=== PATIENT | female | born 1960 | race Caucasian/White ===

== ENCOUNTER 2023-10-05 06:07 | Inpatient (IN) | payer MEDICARE, OTHER, SELFPAY ==
[2023-09-30 11:02] VITALS: BMI 29.4
[2023-09-30 11:58] LABS: % Basophils 0.3 % (0-2); % Eosinophils 0.7 % (0-6); % Immature Granulocytes 0.1 % (0-0.5); % Lymphocytes 25.8 % (20.5-51.1); % Neutrophils 66.1 % (42.2-75.2); Absolute Eosinophils 0.1 10^3/uL (0-0.7); Absolute Lymphocytes 2.3 10^3/uL (1.2-3.4); Absolute Monocytes 0.6 10^3/uL (0.1-0.6); Absolute Neutrophils 5.9 10^3/uL (1.4-6.5); Hematocrit 39.9 % (37.0-47.0); Hemoglobin 14.6 g/dL (12.0-16.0); Mean Corp Hgb Conc. 36.6 g/dL (33.0-37.0); Mean Corpuscular Hgb 35.2 pg (27.0-31.0); Mean Corpuscular Volume 96.1 fL (81.0-99.0); Nucleated Red Blood Cells % 0 %; Platelet Count 223 10^3/uL (130-400); Red Blood Cell Count 4.15 10^6/uL (4.20-5.40); Red Cell Dist. Width 11.4 % (11.5-14.5)
[2023-09-30 12:09] LABS: INR 0.96; PT 12.8 Sec (11.4-14.6)
[2023-09-30 12:10] LABS: APTT 24.4 Sec (23.4-35.0)
[2023-09-30 12:14] LABS: Blood Urea Nitrogen 24 mg/dl (7-17); Calcium 9.5 mg/dl (8.4-10.2); Carbon Dioxide 27 mmol/L (22-30); Chloride 98 mmol/L (98-107); Estimated Creatinine Clearance 94 ml/min; Glucose 171 mg/dl (70-99); Potassium 3.9 mmol/L (3.5-5.1); Sodium 136 mmol/L (135-145); eGFR > 60.00
[2023-10-05] VITALS (23 sets, daily range): BP systolic 88–137; BP diastolic 48–69; BMI 28.7
[2023-10-05] MEDS: BACTROBAN NASAL 1 GRAM NASAL (07:01)
[2023-10-05] MEDS: PERIDEX 0.12% ORAL RINSE 15 ML PO (07:01)
[2023-10-05] MEDS: NSS 500 IV (07:02)
--- NOTE | 2023-10-05 07:03 | W.SUR.PREOP ---
Pre-Operative Surgical Note
-
I have examined this patient prior to the performance of the scheduled procedure.
The patient's condition is unchanged from the time of the current History and
Physical and the patient is able to undergo the scheduled procedure.
[2023-10-05 07:08] LABS: Glucose - Point of Care 154 mg/dl (70-99)
[2023-10-05] MEDS: VANCOCIN 200 IV (07:13)
--- NOTE | 2023-10-05 09:28 | W.SUR.POST ---
Surgical Immediate Post Op
Note
Pre Op Diagnosis: Asymptomatic left carotid stenosis
Post Op Diagnosis: Asymptomatic left carotid stenosis
Procedure Performed: Left carotid endarterectomy with bovine pericardium patch angioplasty, with EEG monitoring
Primary Surgeon: Shane Wyatt MD
Assist: NAFISA Mullen
Anesthesia: GETA
Estimated Blood Loss: 10 ml
Fluids: See anesthesia flowsheet
Drains/Shunts: N/A
Specimens/Cultures: Left carotid plaque
Doppler/Duplex/Angio (Y/N): Y, Doppler
Complications: None
Operative Findings: Upon waking from anesthesia, patient able to move bilateral upper extremities and lower extremities to command and spontaneously.
--- NOTE | 2023-10-05 09:30 | W.PV.INTER ---
VPI Note
Pre Admission Note
Functional Status: Full
Ambulation: Ambulate Independently
Pre Op Medications
Pre Op ASA: Yes
Pre Op Statin: No, for Medical Reason (allergic )
Pre Op FLORIAN Inhibitor/ARB: Yes
Pre Op P2y12 Antagonist: Clopidogrel
Pre Op Beta Blockers: Chronic > 30 Days
Pre Op Chronic Anticoagulant: None
Pre Op Cilostazol: No
Post Op Medications
Post Op ASA: Yes
Post Op Statin: No, for Medical Reason
Post Op FLORIAN Inhibitor/ARB: Yes
Post Op P2y12 Antagonist: Clopidogrel
Post Op Beta Blockers: Chronic > 30 Days
Post Op Chronic Anticoagulant: None
Post Op Cilostazol: No
Modified [place]
Pre Op: 0
Post Op: 0
--- NOTE | 2023-10-05 10:22 | OR.RPT ---
Operative Report
Operative Report
PROCEDURE DATE: 10/05/2023
Preoperative diagnosis: Asymptomatic severe string-like left carotid stenosis.
Postoperative diagnosis: Same
Procedure: Left carotid endarterectomy with bovine pericardial patch angioplasty and intraoperative EEG/SSEP monitoring.
Surgeon: Edmundo
Department Clerk: HEBERT Daley required for all portions of procedure including traction/countertraction, following of suture line, assistance with closure.
Complications: None
Anesthesia: General
Indications for procedure:
Severe string-like left carotid stenosis in the setting of severe soft plaque. Risk/benefits/alternatives of revascularization were all fully discussed. Patient understood all wish to proceed.
Description of procedure:
Patient was identified brought to the operating room placed on the table in supine position. After the adequate administration of anesthesia and perioperative antibiotics she was prepped and draped in the standard surgical fashion. A standard
preoperative timeout was undertaken and everybody was in agreement the plan. A standard longitudinal incision was made in the left neck that was carried through the skin subcutaneous tissue. Using the electrocautery dissection was carried through
the platysma muscle layer and then alongside the anterior medial border of the sternocleidomastoid muscle. Then using a combination of sharp dissection with the Metzenbaum scissors and electrocautery I dissected along the anterior medial border of
the internal jugular vein. The common facial vein branch was ligated between silk ties and then divided. Note the facial vein branch was high (cephalad) to the bifurcation, but crossed over the internal carotid artery and therefore I felt would be
in the way anyway. I then deepened my retraction. The common carotid artery was identified and carefully dissected away from the surrounding structures take great care to avoid any injury to the structures. A vessel loop was passed around it
which was double looped, but not yet tightened. Note the vagus nerve was located in its usual location posterior lateral to the common carotid artery, and was protected from harm's way. I then continued my dissection up the common carotid artery
to the bulb staying only on the anterior surface of the carotid artery. Then I carried the dissection up to the internal carotid artery and then to the distal internal carotid artery. I identified where it was soft and carefully circumferentially
dissected the internal carotid artery with minimal mobilization and passed a vessel loop around it. Note the hypoglossal nerve was preserved from harm's way. The patient was given an appropriate dose of heparin 7500 units. Next I dissected the
anterior surface of the external carotid artery and superior thyroid branches. These were then carefully circumferentially dissected with minimal mobilization and vessel loops passed around these which were double looped but not yet tightened.
After 3 minutes of heparin circulation time and confirmation of optimization of the blood pressure with my anesthesiology colleagues, I clamped the distal internal carotid artery where it was soft. There was no immediate EEG or SSEP changes. After
1 minute of test clamp time there was no changes noted. Therefore at this point, the vessel loops on the external carotid artery and superior thyroid branches were tightened and the common carotid artery was clamped where it was soft proximally.
An arteriotomy was made on the common carotid artery with an 11 blade and extended using a Martínez scissor. I extended the arteriotomy onto the mid to distal internal carotid artery. There was relatively focal proximal internal carotid artery plaque
with severe hemorrhagic component. Correlated exactly to findings seen on CT scan. A [place] was then used to endarterectomized the plaque. An endarterectomy plane was created, and the plaque was then endarterectomized. Distally I feathered the
plaque out to a nice clean endpoint in the distal internal carotid artery. Next I endarterectomized the intima back to normal intima in the common carotid artery, and the intima was cut flush there. I then grasped the plaque and everted plaque out
of the origin of the external carotid artery. The plaque was then sent off for specimen. The origin of the external carotid artery was carefully visualized and any fine debris were removed with fine forceps. Proximal and distal endpoints were
then carefully inspected. Any fine debris was removed with fine forceps, and the intima was noted to be nicely adherent proximally and distally. Next any fine debris were removed throughout the endarterectomy bed with fine forceps. I then flushed
heparinized saline. I was very satisfied. Then, I used a bovine pericardial patch to sew a patch angioplasty with a running 6-0 Prolene suture. Prior to completing and tying down my suture line, I backbled sequentially each branch and reclamped
each branch prior to unclamping the next branch. I then irrigated with heparinized saline. Then I completed and tied down my suture line. We then restored flow in the common carotid and external carotid arteries. Finally, we released flow in the
internal carotid artery. There was excellent pulsatile flow in all 3 vessels. There was an excellent Doppler signal in the internal carotid artery distal to the patch with a good normal low resistance Doppler signal. There was a good Doppler
signal in the external carotid artery as well. A couple 6-0 Prolene [id number] sutures were placed along a couple bleeding points along the suture line. Protamine was given to reverse the heparin. Hemostasis was completely achieved. We then
irrigated and confirmed full hemostasis. We then closed in layers with 2-0 Vicryl layer to reapproximate the sternocleidomastoid muscle, followed by 3-0 Vicryl platysma muscle running layer, followed by 4-0 Monocryl subcuticular stitch. Dermabond
was applied. The patient tolerated procedure well. She awoke moving all extremities to command with tongue in the midline.
[2023-10-05] MEDS: NEO-SYNEPHRINE 250 IV (10:32)
[2023-10-05 10:35] LABS: Hematocrit 34.3 % (37.0-47.0); Hemoglobin 12.7 g/dL (12.0-16.0); Mean Corpuscular Hgb 35.1 pg (27.0-31.0); Mean Corpuscular Volume 94.8 fL (81.0-99.0); Mean Platelet Volume 8.8 fL (7.4-10.4); Platelet Count 160 10^3/uL (130-400); Red Blood Cell Count 3.62 10^6/uL (4.20-5.40); Red Cell Dist. Width 11.4 % (11.5-14.5); White Blood Cell Count 5.9 10^3/uL (4.8-10.8)
[2023-10-05 10:46] LABS: INR 1.16; PT 14.6 Sec (11.4-14.6)
[2023-10-05 10:47] LABS: APTT 25.3 Sec (23.4-35.0)
[2023-10-05 10:57] LABS: Blood Urea Nitrogen 14 mg/dl (7-17); Calcium 8.1 mg/dl (8.4-10.2); Carbon Dioxide 25 mmol/L (22-30); Chloride 106 mmol/L (98-107); Estimated Creatinine Clearance 93 ml/min; Glucose 153 mg/dl (70-99); Sodium 136 mmol/L (135-145); eGFR > 60.00
[2023-10-05] MEDS: DILAUDID 0.25 MG IV ×2 (10:59→11:27)
[2023-10-05 11:09] LABS: Potassium 3.1 mmol/L (3.5-5.1)
[2023-10-05] MEDS: NSS 1000 IV (11:36)
[2023-10-05] MEDS: DIOVAN PO (12:03)
--- NOTE | 2023-10-05 12:07 | CON.INTV ---
Consultation
Consultation Request
Date/Time Consultation Requested: 10/05/2023-12 PM
Date/Time Consultation Performed: 10/05/2023-12:30 PM
Requesting Provider: Vascular surgery
Performing Provider: Dr. Tobias
Reason for Consultation: Postop critical care management
Medical History
-
Chief Complaint: PAD
History of Present Illness:
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 I am seeing her postoperatively in the surgical
intensive care unit. She is overall doing well. Nursing had noticed a slight left facial droop which is subsequently resolved. I see none at this time. She denies any shortness of breath, chest congestion, chest pain, chest tightness, wheezing,
productive cough, abdominal pain, nausea, weakness, dysarthria, swallowing difficulties or leg swelling.
Past Medical History
Past Medical History: None (Hypertension. CAD/stent. Depression. Right breast cancer. Bilateral mastectomy 2009. Nephrolithiasis. Recurrent renal calculi. Chronic UTI.)
Social History
Tobacco: Former Smoker (48-inmm-hjqr-quit 9 years ago)
Drug: None
Personal:
Living: With Family
Occupational Exposures: No known asbestos exposure
Environmental Exposures: No known tuberculosis exposure
Family History
Family History: Other ( Father-Parkinson's, biliary tract cancer, pancreatic cancer, engzcv-kusmkb-lcls cancer)
Allergies / Home Medications
Allergies
Allergy/AdvReac Type Severity Reaction Status Date / Time
metformin Allergy weakness Verified 10/05/23 06:27
and SOB
Penicillins Allergy respiratory Verified 10/05/23 06:27
reaction
(tolerates
cephalosporins),
vasovagal
pravastatin [From Pravachol] Allergy suicidal Verified 10/05/23 06:27
ideation,
confusion
rosuvastatin [From Crestor] Allergy suicidal Verified 10/05/23 06:27
ideation,
confusion
FLORIAN Inhibitors AdvReac cough Verified 10/05/23 06:27
adhesive AdvReac redness Verified 10/05/23 06:27
dexamethasone AdvReac manic Verified 10/05/23 06:27
meperidine [From Demerol] AdvReac Nausea/ Verified 10/05/23 06:27
Vomiting
methenamine [From Hiprex] AdvReac Change in Verified 10/05/23 06:27
coordination,
Med
toxicity
morphine AdvReac Nausea Verified 10/05/23 06:27
paroxetine [From Paxil] AdvReac Hypermania Verified 10/05/23 06:27
prednisone AdvReac manic Verified 10/05/23 06:27
Quinolones AdvReac 'overstimulation Verified 10/05/23 06:27
- strange
feeling',
tardive
dyskinesia
Zqrfcza-UYT-JkM Reductase AdvReac Suicidial Verified 10/05/23 06:27
Inhibitor Ideation,
[Dkdangn-Rtn-Kqn Reductase Confusion
Inhibitor]
PRINCIPAL ARCHITECT stimulants Allergy manic Uncoded 10/05/23 06:28
steroids Allergy manic Uncoded 10/05/23 06:28
Home Medications
Medication Instructions Recorded Confirmed Last Taken Type
aspirin 81 mg tablet,delayed 81 mg PO HS Blood clot 01/07/18 10/05/23 10/04/23 23:55 History
release prevention/tx
pantoprazole 40 mg tablet,delayed 40 mg PO HS Gastrointestinal issue 01/07/18 10/05/23 10/04/23 23:55 History
release
carbamazepine 200 mg tablet 600 mg PO HS Neurological Condition 09/03/18 10/05/23 10/04/23 23:55 History
clopidogrel 75 mg tablet 75 mg PO HS Blood clot 09/20/19 10/05/23 10/04/23 23:55 History
prevention/tx
valsartan 320 mg tablet (Diovan) 320 mg PO DAILY Blood pressure 09/20/19 10/05/23 10/05/23 04:00 History
hydrochlorothiazide 25 mg tablet 25 mg PO DAILY 09/21/19 10/05/23 10/05/23 04:00 Rx
metoprolol succinate 25 mg 75 mg PO BID ##0 09/21/19 10/05/23 10/04/23 23:55 Rx
tablet,extended release 24 hr
ezetimibe 10 mg tablet 10 mg PO HS #30 tabs 05/07/21 10/05/23 10/04/23 23:55 Rx
nitroglycerin 0.4 mg sublingual 0.4 mg sublingual [id number] PRN 05/07/21 10/05/23 8 Months Ago Rx
tablet Chest Pain #25 tabs ~02/02/23
bupropion HCl 75 mg tablet 75 mg PO DAILY Mental 12/16/22 10/05/23 10/04/23 11:00 History
Health/Anxiety
icosapent ethyl 1 gram capsule 2 g PO BID Supplement 12/16/22 10/05/23 10/04/23 23:55 History
(Vascepa)
nitrofurantoin macrocrystal 25 mg 25 mg PO SUWEFR Infection 12/16/22 10/05/23 10/04/23 23:55 History
capsule (Macrodantin)
clonazepam 0.5 mg tablet (Klonopin) 0.5 mg PO BID PRN anxiety 09/29/23 10/05/23 10/04/23 23:55 History
lamotrigine 25 mg tablet (Lamictal) 50 mg PO DAILY Mental 09/29/23 10/05/23 10/04/23 11:00 History
Health/Anxiety
bupropion HCl 75 mg tablet 55.5 mg PO QPM Mental 10/05/23 10/05/23 10/04/23 16:00 History
Health/Anxiety
multivitamin 1 tab PO MOWEFR Supplement 10/05/23 10/05/23 10/02/23 History
Review of Systems
-
Unable to Obtain full review of systems at this time due to: Other (Per HPI)
Vitals / Labs / Diagnostic Testing
Vital Signs
Temp Pulse Resp BP Pulse Ox
97.6 F 57 17 129/51 100
10/05/23 12:02 10/05/23 11:52 10/05/23 11:52 10/05/23 11:30 10/05/23 11:52
Lab Data
10/05/23 10:11
10/05/23 10:11
Laboratory Results
10/05/23
10:11
PT 14.6
INR 1.16
APTT 25.3
Diagnostic Testing:
Physical Exam
-
Exam:
Well-nourished and well-developed in no apparent distress
HEENT-atraumatic, normocephalic
Neck-supple, no JVD, no bruit
Heart-regular rate and rhythm-no murmurs, rubs or gallops
Chest-clear to auscultation, no wheezes, crackles
Back-no tenderness
Abdomen-soft, nontender, nondistended, no hepatosplenomegaly
Extremities-no cyanosis, clubbing, edema and good peripheral pulses
Integument-intact, no rashes, lesions or ecchymosis
Neurology-alert and oriented, nonfocal motor and sensory exam
Assessment
-
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
Assessment
Asymptomatic severe string-like left carotid stenosis
Status post left carotid endarterectomy/bovine pericardial patch angioplasty and intraoperative EEG monitoring-Dr. Wyatt-10/05/2023-3.1
Mild hypokalemia-3.1
Hyperglycemia-blood sugar 153
Conditions present prior to admission:
Hypertension.
CAD/stent.
Depression.
Right breast cancer.
Bilateral mastectomy 2009.
Nephrolithiasis.
Recurrent renal calculi.
Chronic UTI.
Plan
Postoperative surgical intensive care unit monitoring
Supplemental oxygen as needed
Incentive spirometry
Aspiration precautions
Neuro and vascular checks per protocol
Vascular surgery following-correspondence and operative notes reviewed
Replace electrolytes
Monitor blood sugar
Insulin supplementation if needed
DVT prophylaxis
Early nutrition
Early mobilization
Critical care statement: A total of 44 minutes of critical care time was provided for this patient today. This includes management of unstable vital signs, evaluation of the patient at bedside, reviewing the patient's pertinent medical records
including radiographs, microbiology, laboratory evaluations, and discussion with primary team, consultants, pharmacy, nutrition, physical therapy, case management, charge nurse, critical care nursing, and respiratory therapy.
Diagnostic data:
Chest x-ray 09/30/2023-NAD
Brain MRI 09/09/2023-no acute intracranial process, moderate frontotemporal and occipital atrophy
Head and neck CT angiogram 09/17/2023-soft plaque within the left carotid bulb associated with high-grade stenosis measuring 83%, less than 50% stenosis right carotid bulb, occlusion versus long segment high-grade stenosis distal right vertebral
artery, severe coronary artery calcifications
Data Reviewed
-
EKG: Report reviewed by me
Radiology: Report reviewed by me
CT Scan: Report reviewed by me
Medical Tests (Nuc Med, Echo etc): Report reviewed by me
Labs: Labs reviewed by me
Old Records: Reviewed
Critical Care Time (in minutes): 44
--- NOTE | 2023-10-05 14:49 | PTCARENOTE ---
Pt admitted s/p L CEA. At admission, slight L mouth droop noted but after 15 min, resolved. All other neuro assessment WNL. 2L NC removed once pt awake. SpO2 95%. Pt assisted OOB to BSC, voided without issue. A-Line dampened within 2hr of arrival.
flushes but pt states discomfort at all times. Dr. Wyatt and team to bedside and authorized removal of A-Line. Removed without issue. Pt ordered lunch. After a few bites, +vomiting. Zofran given with nausea resolving.
[2023-10-05] MEDS: ZOFRAN 4 MG IV (15:17)
--- NOTE | 2023-10-05 20:00 | PTCARENOTE ---
Resumed care of pt this evening. Neuro checks unchanged since previous assessment. Pt is pleasant, A&Ox3 and can move all 4 extremities. Surgical site C/D/I. VSS.
[2023-10-05] MEDS: HEPARIN 5000 UNITS SC (21:11)
[2023-10-05] MEDS: TOPROL XL 75 MG PO (21:12)
[2023-10-05] MEDS: PROTONIX 40 MG PO (21:13)
[2023-10-05] MEDS: ASPIR LOW (ENTERIC COATED) 81 MG PO (21:13)
[2023-10-05] MEDS: PLAVIX 75 MG PO (21:13)
[2023-10-05] MEDS: TEGRETOL 600 MG PO (21:14)
[2023-10-05] MEDS: ZETIA 10 MG PO (21:14)
[2023-10-05] MEDS: ROXICODONE 5 MG PO (21:15)
--- NOTE | 2023-10-05 21:30 | PTCARENOTE ---
PRN Kylie administered by this RN for neck pain, (surgical site) 4 out of 10 on the pain scale. VSS.
[2023-10-05 21:31] LABS: Blood Urea Nitrogen 17 mg/dl (7-17); Calcium 8.7 mg/dl (8.4-10.2); Carbon Dioxide 29 mmol/L (22-30); Chloride 99 mmol/L (98-107); Estimated Creatinine Clearance 93 ml/min; Glucose 212 mg/dl (70-99); Magnesium 1.7 mg/dl (1.6-2.3); Potassium 3.4 mmol/L (3.5-5.1); Sodium 137 mmol/L (135-145); eGFR > 60.00
[2023-10-05] MEDS: KCL 40 MEQ PO (23:52)
[2023-10-05] MEDS: MAGNESIUM SULFATE 100 IV (23:52)
[2023-10-06] VITALS (11 sets, daily range): BP systolic 97–134; BP diastolic 48–84; BMI 29.1
--- NOTE | 2023-10-06 04:00 | PTCARENOTE ---
Neuro assessments continue to be within normal limits. Pt resting comfortably. VSS.
[2023-10-06 05:16] LABS: Hematocrit 34.6 % (37.0-47.0); Hemoglobin 12.5 g/dL (12.0-16.0); Mean Corp Hgb Conc. 36.1 g/dL (33.0-37.0); Mean Corpuscular Hgb 34.2 pg (27.0-31.0); Mean Corpuscular Volume 94.8 fL (81.0-99.0); Platelet Count 202 10^3/uL (130-400); Red Blood Cell Count 3.65 10^6/uL (4.20-5.40); Red Cell Dist. Width 11.6 % (11.5-14.5); White Blood Cell Count 7.4 10^3/uL (4.8-10.8)
[2023-10-06 05:31] LABS: INR 1.07; PT 13.7 Sec (11.4-14.6)
[2023-10-06 05:39] LABS: Blood Urea Nitrogen 14 mg/dl (7-17); Calcium 8.8 mg/dl (8.4-10.2); Carbon Dioxide 27 mmol/L (22-30); Chloride 102 mmol/L (98-107); Estimated Creatinine Clearance 94 ml/min; Glucose 133 mg/dl (70-99); Sodium 138 mmol/L (135-145); eGFR > 60.00
--- NOTE | 2023-10-06 07:38 | W.PN.INTV ---
Today's Communication / Plan
Recommendations
Neurovascularly intact
Increase diet
Increase activity
Transfer out of ICU-call pulmonary if respiratory issues arise
Assessment
-
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
Assessment
Asymptomatic severe string-like left carotid stenosis
Status post left carotid endarterectomy/bovine pericardial patch angioplasty and intraoperative EEG monitoring-Dr. Wyatt-10/05/2023-3.1
Mild hypokalemia-3.1
Hyperglycemia-blood sugar 153
Conditions present prior to admission:
Hypertension.
CAD/stent.
Depression.
Right breast cancer.
Bilateral mastectomy 2009.
Nephrolithiasis.
Recurrent renal calculi.
Chronic UTI.
Plan
Hemodynamically and neurovascularly intact
Wean supplemental oxygen
Incentive spirometry encourage
Aspiration precautions
Monitor hemoglobin
Transfuse if needed
Monitor blood sugars
Insulin supplementation if needed
Neuro and vascular checks per protocol also continue
Vascular surgery closely
DVT prophylaxis recommended
Nutrition
Increase activity/physical therapy
Patient can be transferred out of ICU-call pulmonary if respiratory issues arise
Reviewed the patient's pertinent medical records including radiographs, microbiology, laboratory evaluations, and discussion with primary team, consultants, pharmacy, nutrition, physical therapy, case management, charge nurse, critical care
nursing, and respiratory therapy.
Diagnostic data:
Chest x-ray 09/30/2023-NAD
Brain MRI 09/09/2023-no acute intracranial process, moderate frontotemporal and occipital atrophy
Head and neck CT angiogram 09/17/2023-soft plaque within the left carotid bulb associated with high-grade stenosis measuring 83%, less than 50% stenosis right carotid bulb, occlusion versus long segment high-grade stenosis distal right vertebral
artery, severe coronary artery calcifications
Subjective Dataa
Subjective Data
Date of Service:
Date of Service: October 06, 2023
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
Subjective:
Doing well, no complaint of shortness of breath, chest pain, abdominal pain, leg swelling, weakness or dysarthria
Review of Systems
General: Other
Objective Data
Data Reviewed
Vital Signs / I&O / Oxygen:
Vital Signs
Temp Pulse Resp BP Pulse Ox
98.5 F 56 23 109/62 90
10/05/23 23:58 10/06/23 06:00 10/05/23 15:18 10/06/23 06:00 10/06/23 06:00
Intake and Output
10/05/23 10/06/23 10/07/23
06:59 06:59 06:59
Intake Total 992 / 992
Output Total 200 / 200
Balance 792 / 792
SaO2 90
Nasal Cannula flow liters per 2
minute
Physical Exam
General: Respiratory Distress (n) and Comfortable
HEENT: Normocephalic, Anicteric and Moist Mucous Membranes
Cardiovascular: Regular Rhythm
Respiratory: Wheeze (n), Crackles (n), Rhonchi (n), Non-Labored Respirations and Accessory Resp Muscle Use (n)
GI: Soft, Non Distended and Non Tender
Neurology: Awake, Alert and No Motor Deficits
Skin: Warm, Good Color, Cyanosis (n), Jaundice (n) and Rash (n)
Labs/Micro/Reports
Lab Data
10/06/23 05:04
10/06/23 05:04
Laboratory Results
10/05/23 10/06/23
10:11 05:04
PT 14.6 13.7
INR 1.16 1.07
APTT 25.3 24.0
[2023-10-06] MEDS: DIOVAN 320 MG PO (07:57)
[2023-10-06] MEDS: TOPROL XL PO ×2 (07:58→08:09)
[2023-10-06] MEDS: ORETIC 25 MG PO (07:59)
[2023-10-06] MEDS: LAMICTAL 50 MG PO (07:59)
[2023-10-06] MEDS: WELLBUTRIN REGULAR RELEASE 75 MG PO (07:59)
[2023-10-06] MEDS: HEPARIN 5000 UNITS SC (07:59)
--- NOTE | 2023-10-06 08:04 | W.PN.VS ---
Addendum entered and electronically signed by Rc Damon III, MD 10/06/23 09:23:
This patient was seen and examined with NAFISA Mullen. I agree with the history and physical exam as well as the assessment and plan.
Signed:
Rc Damon III, MD
[facility] Vascular Surgery
[phone] (kwju)
Original Note:
Today's Communication / Plan
-
Seen and assessed with Dr Damon
Assessment/Plan
-
POD 1 Left carotid endarterectomy with bovine pericardial patch angioplasty and intraoperative EEG/SSEP monitoring.
Plan:
-OOB/ambulate
-diet
-void
-IVF and a-line dc'd yesterday
-likely DC later today
Subjective Data
-
Date of Service: October 06, 2023
Pt seen at bedside this am with Dr Damon. Pt offers no complaints at this time, she is looking forward to getting out of bed this am.
Objective Data
-
Vital Signs
Temp Pulse Resp BP Pulse Ox
98.5 F 56 23 109/62 90
10/05/23 23:58 10/06/23 06:00 10/05/23 15:18 10/06/23 06:00 10/06/23 06:00
Intake and Output
10/05/23 10/06/23 10/07/23
06:59 06:59 06:59
Intake Total 992 / 992
Output Total 200 / 200
Balance 792 / 792
Intake:
Oral fluids 580 / 580
IV fluids (Total) 412 / 412
NSS 400 / 400
Phenylephrine
Output:
Emesis 200 / 200
Other:
Number of approximated LARGE 1
amounts of urine
Lab Results
10/06/23 05:04
10/06/23 05:04
Calcium 8.8 mg/dl (8.4-10.2) 10/06/23 05:04
Magnesium 1.7 mg/dl (1.6-2.3) 10/05/23 21:03
Physical Exam
-
AAOx3
no tachypnea
no tachycardia
neck site c/d/i, soft, no hematoma or drainage noted
moves all extremities equally
tongue midline
--- NOTE | 2023-10-06 08:52 | PTCARENOTE ---
Resumed care of pt this evening. Neuro checks unchanged since previous assessment. Pt is pleasant, A&Ox3 and can move all 4 extremities. Surgical site C/D/I. VSS. OOB too chair with no asst necessary.
--- NOTE | 2023-10-06 11:15 | CM ---
CM following re: discharge planning.
Discussed in Rounds, reviewed pt's chart, met with pt.
Pt is a 63 year old female, admitted with primary dx of POD 1 Left carotid endarterectomy. Per vascular surgery pt will be discharged home late this afternoon. Pt is aware, expressed her agreement. IMM reviewed, placed on chart, pt has a copy.
Pt reports she lives with in a 2[address], no steps to enter, has 2 supportive sons. pt described herself as independent in all areas [employer]. No DME or SNF history. Pt reports she had [facility] in the past at some point. Pt expressed her desire to return
back home with family. Pt stated she will not need any after care VN services.
PCP: Tico Schwab
[facility]
D/C plan: home no needs. to transport
--- NOTE | 2023-10-06 12:37 | W.DS.TRANS ---
DC Summary - Pump Tender
-
Discharge Instructions:
Discharge Diagnosis/Procedures Left carotid endarterectomy
Diet As tolerated
Activity No strenuous activity
Driving Restrictions Not until seen by your Dr
Bathing Restrictions OK to Shower
Instructions:
Stand-Alone Forms: DC Instr - Vascular OR
Changes to Home Medications: No
Discharge Medications:
DC Medications w/original date entered in [employer]
aspirin 81 mg tablet,delayed release 81 mg PO HS Blood clot prevention/tx 01/07/18
pantoprazole 40 mg tablet,delayed release 40 mg PO HS Gastrointestinal issue 01/07/18
carbamazepine 200 mg tablet 600 mg PO HS Neurological Condition 09/03/18
valsartan 320 mg tablet (Diovan) 320 mg PO DAILY Blood pressure 09/20/19
hydrochlorothiazide 25 mg tablet 25 mg PO DAILY 09/21/19
metoprolol succinate 25 mg tablet,extended release 24 hr 75 mg PO BID ##0 09/21/19
ezetimibe 10 mg tablet 10 mg PO HS #30 tabs 05/07/21
nitroglycerin 0.4 mg sublingual tablet 0.4 mg sublingual [id number] PRN Chest Pain #25 tabs 05/07/21
bupropion HCl 75 mg tablet 75 mg PO DAILY Mental Health/Anxiety 12/16/22
icosapent ethyl 1 gram capsule (Vascepa) 2 g PO BID Supplement 12/16/22
nitrofurantoin macrocrystal 25 mg capsule (Macrodantin) 25 mg PO SUWEFR Infection 12/16/22
clonazepam 0.5 mg tablet (Klonopin) 0.5 mg PO BID PRN anxiety 09/29/23
lamotrigine 25 mg tablet (Lamictal) 50 mg PO DAILY Mental Health/Anxiety 09/29/23
bupropion HCl 75 mg tablet 55.5 mg PO QPM Mental Health/Anxiety 10/05/23
multivitamin 1 tab PO MOWEFR Supplement 10/05/23
clopidogrel 75 mg tablet 75 mg PO HS #0 tabs 10/06/23
Home Medication Changes
Pending Results: No
--- NOTE | 2023-10-06 15:18 | PTCARENOTE ---
Discharge orders explained to pt-verbalized understanding. IV X2 removed. Pt to wheelchair and escorted to vehicle.
--- NOTE | 2023-11-05 15:10 | W.DCSUMMARY ---
Discharge Summary
Discharge Data
Date of Admission: 10/05/23
Date of Discharge: 10/06/23
-
Pending Results: No
Hospital Course
Attending: Edmundo
Consultants: Pulmonary medicine
Allergies: Metformin, penicillins, statins, FLORIAN inhibitor's, adhesive, dexamethasone, Demerol, Hiprex, morphine, Paxil, quinolones, ONION TIER stimulants
Procedure with date: 10/05/2023: Left carotid endarterectomy with bovine pericardial patch angioplasty with EEG monitoring
History of present illness: The patient is an 63-year-old female with multiple medical conditions including: carotid stenosis, hypertension, coronary artery disease with stents, depression, right breast cancer, bilateral mastectomy, nephrolithiasis,
renal calculi, chronic urinary tract infections. Patient presented on 10/05/2023 for scheduled procedure with Dr. Wyatt. Patient presented at baseline health with no reports of recent illness or trauma.
Hospital Course: Briefly, the patient underwent scheduled carotid endarterectomy without complications, and recovered in PACU. Following recovery phase one and two patient was transferred to intensive care unit per protocol for continued hemodynamic
monitoring. Band Tier consulted to aid in medical management from a critical care perspective. POD #1 (10/06/2023) Patient neurologically intact, face symmetrical, and tolerating PO diet. Surgical site clean, dry, and intact with suture line well
approximated and soft. No evidence of hematoma. Arterial line and IV fluids discontinued. Patient able to ambulate without difficulty or incident. Patient stable for discharge to home.
Prescriptions and follow up appointment are included in the DC summary pbx supervisor note. All instructions were given to the patient in both written and verbal form and the patient expressed understanding.
Discharge Plan
-
Patient Disposition: Home (Routine Discharge)
Discharge Diagnosis/Procedures: Left carotid endarterectomy
Condition: Good
Diet: As tolerated
Activity: No strenuous activity
Driving Restrictions: Not until seen by your Dr
Bathing Restrictions: OK to Shower
Activity Restrictions/Additional Instructions:
If you experience severe constant headache, weakness to an arm or leg, change in vision, trouble speaking or any stroke-like symptom, call 911 immediately
If you experience swelling, increased bruising, drainage from neck site, or fever, please call the office
Stand Alone Forms: DC Instr - Vascular OR
Referrals:
Conner Abebe CRNP [Family Provider] -
Brenda Dixon PA-C [Specified Professional Personl] - 10/20/23 1:30 pm (Vascular follow up)
Prescriptions:
Continued
aspirin 81 MG tablet,delayed release (DR/EC)
81 mg PO HS
pantoprazole 40 MG tablet,delayed release (DR/EC)
40 mg PO HS
carbamazepine 200 MG tablet
600 mg PO HS
Patient Comments:
01/10/23- patient has 200mg and halves one tablet and then quarters it to get her dose
valsartan [Diovan] 320 MG tablet
320 mg PO DAILY
hydrochlorothiazide 25 MG tablet
25 mg PO DAILY 0RF
metoprolol succinate 25 MG tablet extended release 24 hr
75 mg PO BID Qty: 0 0RF
ezetimibe 10 MG tablet
10 mg PO HS Qty: 30 2RF
nitroglycerin 0.4 MG tablet, sublingual
0.4 mg sublingual [id number] PRN (Reason: Chest Pain) Qty: 25 2RF
bupropion HCl 75 mg tablet
75 mg PO DAILY
Rx Instructions:
Patient adjusts doses day to day so check with her on the dose for a particular day.
nitrofurantoin macrocrystal [Macrodantin] 25 mg Capsule
25 mg PO SUWEFR
Patient Comments:
01/10/23- patient has old bottle at home and stopped her cephalexin
icosapent ethyl [Vascepa] 1 gram capsule
2 g PO BID
clonazepam [Klonopin] 0.5 mg Tablet
0.5 mg PO BID PRN (Reason: anxiety)
Rx Instructions:
Patient adjusts the dosage so ask her what dose she is taking that day.
lamotrigine [Lamictal] 25 mg Tablet
50 mg PO DAILY
bupropion HCl 75 mg Tablet
55.5 mg PO QPM
Rx Instructions:
Pt states she takes 1/2 tablet of 75mg and also a 1/4 tablet of 75mg for total of 55.5mg at bedtime
multivitamin Tablet
1 tab PO MOWEFR
clopidogrel 75 MG tablet
75 mg PO HS Qty: 0 0RF
Discharge Orders:
Discharge Patient (As Directed); Ordered 10/06/23
Ordered By: Triny Daley
Discharge Date and Time
Discharge Date/Time: 10/06/23 15:14
== END 2023-10-06 15:14 | disposition home or self-care (01) | DRG 39 ==
LOC: ICU 06:07
PROVIDERS: Nurse Practitioner; Nurse Practitioner Primary Care; ADMITTING PHYSICIAN Surgery Vascular Surgery; CONSULT PHYSICIAN Internal Medicine Critical Care Medicine; FAMILY PHYSICIAN Nurse Practitioner Family
PROC: 03CL0ZZ Extirpation of Matter from Left Internal Carotid Artery, Open Approach (ICD-10-PCS; 2023-10-05)
PROC: 03UL0KZ Supplement Left Internal Carotid Artery with Nonautologous Tissue Substitute, Open Approach (ICD-10-PCS; 2023-10-05)
DX: I65.22 Occlusion and stenosis of left carotid artery (principal); I10 Essential (primary) hypertension; F32.A Depression, unspecified; I25.10 Atherosclerotic heart disease of native coronary artery without angina pectoris; E87.6 Hypokalemia; R73.9 Hyperglycemia, unspecified; Z95.5 Presence of coronary angioplasty implant and graft; Z87.891 Personal history of nicotine dependence; Z90.13 Acquired absence of bilateral breasts and nipples; Z85.3 Personal history of malignant neoplasm of breast; Z87.442 Personal history of urinary calculi; Z87.440 Personal history of urinary (tract) infections; Z80.0 Family history of malignant neoplasm of digestive organs; Z80.1 Family history of malignant neoplasm of trachea, bronchus and lung; Z82.0 Family history of epilepsy and other diseases of the nervous system; Z88.5 Allergy status to narcotic agent; Z88.0 Allergy status to penicillin; Z88.8 Allergy status to other drugs, medicaments and biological substances; Z91.048 Other nonmedicinal substance allergy status; Z79.82 Long term (current) use of aspirin
CPT/HCPCS: 88304; 88311; 35301; 36415; 71046; 80048; 82962; 83735; 85025; 85027; 85610; 85730; 86850; 86900; 86901; 87070; 93005

== ENCOUNTER → 2023-11-11 09:26 | Outpatient (REF) | payer MEDICARE, OTHER, SELFPAY | LOC: CLAB 09:26 | PROVIDERS: ATTENDING PHYSICIAN Specialist | DX: N39.0 Urinary tract infection, site not specified (principal) | CPT/HCPCS: 87086 ==

== ENCOUNTER → 2023-11-18 12:39 | Outpatient (REF) | payer MEDICARE, OTHER, SELFPAY | LOC: RAD 12:39 | PROVIDERS: ATTENDING PHYSICIAN Physician Assistant; FAMILY PHYSICIAN Nurse Practitioner Family | DX: I65.29 Occlusion and stenosis of unspecified carotid artery (principal); I25.10 Atherosclerotic heart disease of native coronary artery without angina pectoris | CPT/HCPCS: 93880 ==

== ENCOUNTER → 2023-12-21 13:16 | Outpatient (REF) | payer MEDICARE, OTHER, SELFPAY | LOC: HWRAD 13:16 | PROVIDERS: ATTENDING PHYSICIAN Surgery Vascular Surgery; FAMILY PHYSICIAN Nurse Practitioner Family | DX: I65.29 Occlusion and stenosis of unspecified carotid artery (principal) | CPT/HCPCS: 70496; 70498; Q9967 ==

== ENCOUNTER → 2024-03-16 12:57 | Outpatient (REF) | payer MEDICARE, OTHER, SELFPAY ==
[2024-03-16 16:11] LABS: % Basophils 0.6 % (0-2); % Eosinophils 1.2 % (0-6); % Immature Granulocytes 0.2 % (0-0.5); % Lymphocytes 43.2 % (20.5-51.1); % Monocytes 10.8 % (1.7-9.3); Absolute Eosinophils 0.1 10^3/uL (0-0.7); Absolute Lymphocytes 2.1 10^3/uL (1.2-3.4); Absolute Monocytes 0.5 10^3/uL (0.1-0.6); Absolute Neutrophils 2.2 10^3/uL (1.4-6.5); Hematocrit 37.8 % (37.0-47.0); Hemoglobin 13.8 g/dL (12.0-16.0); Mean Corp Hgb Conc. 36.5 g/dL (33.0-37.0); Mean Corpuscular Hgb 34.2 pg (27.0-31.0); Mean Corpuscular Volume 93.8 fL (81.0-99.0); Mean Platelet Volume 9.3 fL (7.4-10.4); Nucleated Red Blood Cells % 0 %; Platelet Count 255 10^3/uL (130-400); Red Blood Cell Count 4.03 10^6/uL (4.20-5.40); Red Cell Dist. Width 11.8 % (11.5-14.5); White Blood Cell Count 4.9 10^3/uL (4.8-10.8)
[2024-03-16 16:33] LABS: Tegretol (Carbamazepine) 10.7 ug/ml (4-12)
[2024-03-16 17:20] LABS: Microalbumin, Random Urine 0.8 mg/dl (0.6-1.7)
[2024-03-16 17:40] LABS: Free T4 0.86 ng/dl (0.78-2.19)
[2024-03-16 17:53] LABS: ALT (SGPT) 20 U/L (0-35); AST (SGOT) 27 U/L (14-36); Albumin 4.6 g/dl (3.5-5.0); Alkaline Phosphatase 100 U/L (38-126); Blood Urea Nitrogen 18 mg/dl (7-17); Calcium 9.4 mg/dl (8.4-10.2); Carbon Dioxide 24 mmol/L (22-30); Chloride 102 mmol/L (98-107); Glucose 154 mg/dl (70-99); HDL Cholesterol 69 mg/dl; LDL Cholesterol, Calculated 106 mg/dl; Potassium 3.9 mmol/L (3.5-5.1); Sodium 138 mmol/L (135-145); Total Bilirubin 0.6 mg/dl (0.2-1.3); Total Cholesterol 195 mg/dl (50-199); Triglyceride 100 mg/dl (10-149); Very Low Density Lipoprotein 20 mg/dl (0-30); eGFR > 60.00
[2024-03-16 17:54] LABS: TSH 2.45 uIU/ml (0.47-4.68)
[2024-03-17 10:18] LABS: Glycohemoglobin (HgbA1c) 6.6 % (4.0-5.6)
== END ==
LOC: HWLAB 12:57
PROVIDERS: ATTENDING PHYSICIAN Nurse Practitioner Family; FAMILY PHYSICIAN Nurse Practitioner Family; REFERRING PHYSICIAN Physician Assistant
DX: E11.9 Type 2 diabetes mellitus without complications (principal); I25.118 Atherosclerotic heart disease of native coronary artery with other forms of angina pectoris; I10 Essential (primary) hypertension; E78.5 Hyperlipidemia, unspecified; Z95.1 Presence of aortocoronary bypass graft; N20.0 Calculus of kidney; N39.0 Urinary tract infection, site not specified; I25.10 Atherosclerotic heart disease of native coronary artery without angina pectoris; Z51.81 Encounter for therapeutic drug level monitoring; E87.1 Hypo-osmolality and hyponatremia; F33.40 Major depressive disorder, recurrent, in remission, unspecified; I65.29 Occlusion and stenosis of unspecified carotid artery
CPT/HCPCS: 36415; 80053; 80061; 80156; 82043; 82570; 83036; 84439; 84443; 85025

== ENCOUNTER → 2024-04-12 12:24 | Outpatient (REF) | payer MEDICARE, OTHER, SELFPAY ==
[2024-04-12 15:46] LABS: Urine Albumin Negative (Neg - Trace); Urine Bilirubin Negative (Negative); Urine Character Clear (Clear); Urine Color Yellow; Urine Glucose Negative (Negative); Urine Ketone Negative (Negative); Urine Leukocyte 1+ (Negative); Urine Nitrite Positive (Negative); Urine Occult Blood 1+ (Negative); Urine Urobilinogen Negative (Neg - 1+)
[2024-04-12 16:19] LABS: Urine Triple Phosphate Crystal Present
[2024-04-12 16:20] LABS: Urine Bacteria Many (Negative); Urine Red Blood Cell 0-2 /HPF (0-2)
== END ==
LOC: HWLAB 12:24
PROVIDERS: ATTENDING PHYSICIAN Specialist; FAMILY PHYSICIAN Nurse Practitioner Family
DX: N39.0 Urinary tract infection, site not specified (principal)
CPT/HCPCS: 36415; 81003; 81015; 87077; 87086; 87186

== ENCOUNTER → 2024-04-22 12:03 | Outpatient (REF) | payer MEDICARE, OTHER, SELFPAY | LOC: HWLAB 12:03 | PROVIDERS: ATTENDING PHYSICIAN Specialist; FAMILY PHYSICIAN Nurse Practitioner Family | DX: N39.0 Urinary tract infection, site not specified (principal) | CPT/HCPCS: 36415; 87077; 87086; 87186 ==

== ENCOUNTER → 2024-05-07 11:34 | Outpatient (REF) | payer MEDICARE, OTHER, SELFPAY | LOC: REG 11:34 | PROVIDERS: ATTENDING PHYSICIAN Specialist; FAMILY PHYSICIAN Nurse Practitioner Family | DX: N39.0 Urinary tract infection, site not specified (principal) | CPT/HCPCS: 87077; 87086; 87186 ==

== ENCOUNTER → 2024-05-19 13:35 | Outpatient (REF) | payer MEDICARE, OTHER, SELFPAY | LOC: RAD 13:35 | PROVIDERS: ATTENDING PHYSICIAN Surgery Vascular Surgery; FAMILY PHYSICIAN Nurse Practitioner Family; REFERRING PHYSICIAN Internal Medicine Cardiovascular Disease | DX: I65.29 Occlusion and stenosis of unspecified carotid artery (principal); I25.10 Atherosclerotic heart disease of native coronary artery without angina pectoris | CPT/HCPCS: 93880 ==

== ENCOUNTER → 2024-05-30 13:08 | Outpatient (REF) | payer MEDICARE, OTHER, SELFPAY ==
[2024-05-30 19:57] LABS: Urine Albumin Negative (Neg - Trace); Urine Bilirubin Negative (Negative); Urine Character Clear (Clear); Urine Color Yellow; Urine Glucose Negative (Negative); Urine Ketone Negative (Negative); Urine Leukocyte Negative (Negative); Urine Nitrite Negative (Negative); Urine Occult Blood Trace (Negative); Urine Urobilinogen Negative (Neg - 1+)
[2024-05-30 20:05] LABS: Urine Mucus Few
[2024-05-30 20:06] LABS: Urine Bacteria Few (Negative)
== END ==
LOC: HWLAB 13:08
PROVIDERS: ATTENDING PHYSICIAN Specialist; FAMILY PHYSICIAN Nurse Practitioner Family
DX: N39.0 Urinary tract infection, site not specified (principal)
CPT/HCPCS: 81003; 81015; 87086

== ENCOUNTER → 2024-09-09 13:15 | Outpatient (REF) | payer MEDICARE, OTHER, SELFPAY ==
[2024-09-09 16:26] LABS: ALT (SGPT) 26 U/L (0-35); AST (SGOT) 30 U/L (14-36); Albumin 4.6 g/dl (3.5-5.0); Alkaline Phosphatase 99 U/L (38-126); Blood Urea Nitrogen 23 mg/dl (7-17); Calcium 9.1 mg/dl (8.4-10.2); Carbon Dioxide 28 mmol/L (22-30); Chloride 98 mmol/L (98-107); Glucose 164 mg/dl (70-99); HDL Cholesterol 62 mg/dl; LDL Cholesterol, Calculated 98 mg/dl; Potassium 4.1 mmol/L (3.5-5.1); Sodium 135 mmol/L (135-145); Total Bilirubin 0.4 mg/dl (0.2-1.3); Total Cholesterol 183 mg/dl (50-199); Total Protein 7.2 g/dl (6.3-8.2); Triglyceride 119 mg/dl (10-149); Very Low Density Lipoprotein 23 mg/dl (0-30); eGFR > 60.00
[2024-09-09 16:35] LABS: Hematocrit 39.5 % (37.0-47.0); Hemoglobin 13.7 g/dL (12.0-16.0); Mean Corp Hgb Conc. 34.7 g/dL (33.0-37.0); Mean Corpuscular Hgb 34.2 pg (27.0-31.0); Mean Corpuscular Volume 98.5 fL (81.0-99.0); Platelet Count 238 10^3/uL (130-400); Red Blood Cell Count 4.01 10^6/uL (4.20-5.40); Red Cell Dist. Width 11.9 % (11.5-14.5); White Blood Cell Count 5.1 10^3/uL (4.8-10.8)
[2024-09-09 16:44] LABS: Microalbumin, Random Urine 1.4 mg/dl (0.6-1.7); Microalbumin/creatinine Ratio 7.8 mg/g; Urine Protein < 5 mg/dl
== END ==
LOC: HWRAD 13:15
PROVIDERS: ATTENDING PHYSICIAN Physician Assistant; FAMILY PHYSICIAN Nurse Practitioner Family; REFERRING PHYSICIAN Specialist
DX: E11.65 Type 2 diabetes mellitus with hyperglycemia (principal); N20.0 Calculus of kidney
CPT/HCPCS: 36415; 74018; 80053; 80061; 82043; 82570; 83036; 84156; 85027

== ENCOUNTER → 2024-09-12 15:36 | Outpatient (REF) | payer MEDICARE, OTHER, SELFPAY | LOC: CLAB 15:36 | PROVIDERS: ATTENDING PHYSICIAN Specialist | DX: N39.0 Urinary tract infection, site not specified (principal) | CPT/HCPCS: 87086 ==

== ENCOUNTER 2024-11-08 15:27 | Observation (INO) | payer MEDICARE, OTHER, SELFPAY ==
[2024-11-08] VITALS (10 sets, daily range): BP systolic 106–171; BP diastolic 59–89; BMI 30.3
[2024-11-08 12:22] LABS: % Basophils 0.3 % (0-2); % Eosinophils 0.1 % (0-6); % Immature Granulocytes 0.3 % (0-0.5); % Lymphocytes 19.9 % (20.5-51.1); % Monocytes 5.3 % (1.7-9.3); % Neutrophils 74.1 % (42.2-75.2); Absolute Lymphocytes 1.8 10^3/uL (1.2-3.4); Absolute Monocytes 0.5 10^3/uL (0.1-0.6); Absolute Neutrophils 6.8 10^3/uL (1.4-6.5); Hematocrit 41.1 % (37.0-47.0); Hemoglobin 14.9 g/dL (12.0-16.0); Mean Corp Hgb Conc. 36.3 g/dL (33.0-37.0); Mean Corpuscular Hgb 34.1 pg (27.0-31.0); Mean Corpuscular Volume 94.1 fL (81.0-99.0); Mean Platelet Volume 8.7 fL (7.4-10.4); Nucleated Red Blood Cells % 0 %; Platelet Count 237 10^3/uL (130-400); Red Blood Cell Count 4.37 10^6/uL (4.20-5.40); Red Cell Dist. Width 11.4 % (11.5-14.5); White Blood Cell Count 9.2 10^3/uL (4.8-10.8)
[2024-11-08 12:36] LABS: ALT (SGPT) 28 U/L (0-35); AST (SGOT) 28 U/L (14-36); Albumin 4.8 g/dl (3.5-5.0); Alkaline Phosphatase 102 U/L (38-126); Blood Urea Nitrogen 25 mg/dl (7-17); Calcium 9.7 mg/dl (8.4-10.2); Carbon Dioxide 29 mmol/L (22-30); Chloride 101 mmol/L (98-107); Glucose 205 mg/dl (70-99); Potassium 3.8 mmol/L (3.5-5.1); Sodium 137 mmol/L (135-145); Total Bilirubin 0.7 mg/dl (0.2-1.3); Total Protein 7.7 g/dl (6.3-8.2); eGFR > 60.00
[2024-11-08 12:39] LABS: INR 1.03; PT 13.8 Sec (11.4-14.6)
[2024-11-08 12:48] LABS: NT-proBNP 510 pg/ml; Troponin I < 0.012 ng/ml
--- NOTE | 2024-11-08 12:57 | ED.GENMED ---
History of Present Illness
General
Chief Complaint: Chest Pain
Source: patient
Exam Limitations: none
Time Seen by Provider: 11/08/24 12:43
Nursing documentation reviewed up to this point in time: agreed with
History of Present Illness
History of Present Illness:
Patient with history of significant cardiac disease, including CABG along with multiple cardiac stent placements, most recently in 2022, presents to ED secondary to recurrent fatigue/shortness of breath with exertion, along with intermittent left
arm 'twinge' since yesterday, similar to what she has experienced in the past. Denies chest pain, but reports nausea sensation. Denies dizziness. Denies diaphoresis. Denies headache. Denies recent change in medications or diet. Denies recent
illness. Denies recent travel. Patient currently takes aspirin and Plavix daily.
Past History
Past History
ED Past Medical History: CAD, Cancer, GERD, HTN, Hypercholesterolemia, [place] and Other
ED Past Surgical History: Cardiac (Stents X 2, CABG,) and Other (Bilateral mastectomy)
Social History
Tobacco: Former smoker
Alcohol: None
Drug: None
Personal:
Living: with family
Employment: Retired
Family History
Family History: Early CAD and CAD
Review of Systems
Review of Systems
Allergies reviewed?: Yes
All Other Systems: ROS reviewed and negative except as documented in HPI and ROS
Constitutional: Reports fatigue
Respiratory: Reports trouble breathing
Cardiac: Reports no symptoms
ABD/GI: Reports no symptoms
Musculoskeletal: Reports no symptoms
Skin: Reports no symptoms
Neurological: Reports no symptoms
Phy Exam
Physical Exam
Physical Exam:
Physical Exam
General: no apparent distress, not acutely ill. afebrile
Head: nc/at. eomi
Neck: supple. normal range of motion.
Heart: s1/s2 regular rate and rhythm, no murmur.
Lungs: no acute respiratory distress. clear bilaterally
Abdomen: normal bowel sounds. not tender.
Neuro: alert and oriented x 3. no focal neurological deficits
Skin: no rash
Psychiatric: well kept. interactive and cooperative
Extremities: no edema. no calf tenderness.
Scores
Heart Score for Chest Pain Patients
STEMI patient?: No
History: Moderately Suspicious
ECG: Normal
Age: >/= 65 years
Risk Factors: >/= 3 Risk Factors or History of CAD
Troponin: </= Normal Limit
Heart Score for Chest Pain Patients: 5
Heart Score Risk: 20.3% MACE over next 6 weeks
Course
Orders/Labs/Results
Orders:
Orders
11/08/24 11:48
Electrocardiogram (*1) Urgent
Reason for Study: Chest Pain
EKG- Treatment ONCE
11/08/24 12:12
Complete Blood Count/With Diff Urgent
Comprehensive Metabolic Panel Urgent
Pro-BNP [NT-proBNP] Urgent
Prothrombin Time Urgent
Troponin I Urgent
11/08/24 12:14
CR Chest - 2 Views Urgent
Comment:
Reason For Exam: chest pain
11/08/24 14:55
Echo 2D MMode Color/Doppler Routine
Reason for Study: Chest pain
11/08/24 Dinner
Cholesterol Lowering
At Your Request: Full Participation
Cholesterol Lowering: No caffeine
11/08/24 15:08
Admit/Transfer Patient As Directed
Co-Sign Provider:
Level of Care: Observation services
Assign to:: Telemetry
Physician / Group: CBC
Diagnosis: Shortness of breath
Reason for Telemetry: Chest Pain syndromes
Date to Stop Telemetry: 11/10/24
Time to Stop Telemetry: 11:00
PRN Pain Medication Management As Directed
May give lesser potent ordered pain med per pt: Yes
preference::
Protocol:: Medication orders for pain may be administered in a
manner that supports deferring to patient preference
when the pt is:
- Requesting an ordered lesser potent pain medication.
Least to most potent pain medications are defined
as: acetaminophen < NSAID < tramadol < opioids
(morphine, oxycodone, hydromorphone).
- Requesting a lesser dose of the same medication IF
ORDERED.
- Requesting a less intrusive route of administration
if both routes are prescribed by the provider (PO <
IV).
11/08/24 15:40
Troponin I Routine
11/08/24 17:39
VTE Contraindication Routine
VTE Mechanical Device Contraindication: Medical Contraindication
Pharmocologic Contraindication: Medical Contraindication
Activity As Directed
Activity Level: Out of Bed- Ad Merry
INT (Intravenous Needle Therapy) As Directed
Intake/ Output As Directed
Frequency: Per unit guidelines
Vital Signs As Directed
Frequency: Per unit guidelines
11/09/24 05:00
Troponin I Routine
11/09/24 06:00
EKG [Electrocardiogram (*1)] IN AM
Reason for Study: CAD
Exercise Nuclear [Nuclear/stress Exercise (*7)] IN AM
Reason for Study: Shortness of breath, left arm pain, CAD
NPO
Allow oral meds: Yes
Allow clear liquids: No
NPO for procedure after (time): Midnight for stress test
BMP [Basic Metabolic Panel] IN AM
Tegretol (Carbamazepine) IN AM
11/10/24 11:00
DC Protocol for Telemetry ONCE
Abnormal Lab Results
11/08/24
12:12
MCH 34.1 H pg
(27.0-31.0)
RDW 11.4 L %
(11.5-14.5)
Absolute Neuts (auto) 6.8 H 10^3/uL
(1.4-6.5)
Lymphocytes % 19.9 L %
(20.5-51.1)
BUN 25 H mg/dl
(7-17)
Glucose 205 H mg/dl
(70-99)
11/08/24 12:12
11/08/24 12:12
Vital Signs
Initial and Last Documented VS:
Initial Vital Signs
Temp Pulse Resp BP Pulse Ox
97.8 F 66 18 160/80 99
11/08/24 11:55 11/08/24 11:55 11/08/24 11:55 11/08/24 11:55 11/08/24 11:55
Last Documented Vital Signs
Temp Pulse Resp BP Pulse Ox
98.5 F 57 18 141/65 97
11/08/24 17:50 11/08/24 17:50 11/08/24 17:50 11/08/24 17:50 11/08/24 17:50
MDM/Problems Addressed
MDM/Problems Addressed:
History and exam concerning for unstable angina. Patient with an unremarkable initial workup, including troponin.
Patient evaluated in ED by Dr. Spencer, cardiology, who will admit patient for further evaluation and treatment.
*EKG
Interpreted by ED Provider?: Yes
EKG Intrepretation Date: 11/08/24
Heart Rate: 67
Rate: normal
Rhythm: sinus
Cullen: normal axis
Interval: normal interval
Ischemia: T-wave inversion
*Critical Care Note
Total Time (30-74mins, 75-104mins- exclusive of procedures): Not Applicable
ED Attending Note
-
Portions of this chart may have been created with voice recognition software.� Occasional wrong word or��sound alike� substitutions may have occurred due to the inherent limitations of voice recognition software.
Discharge Plan
Departure
Patient Disposition: Admit
Date of Disposition: 11/08/24
Time of Disposition: 17:24
Admit to: Telemetry
Presentation/result/management discussed w/ accepting MD/DO: Hospitalist
Discharge Problem:
Unstable angina
Interventions
Interventions:
*Risk Screen - Suicide Last Done: 11/08/24 11:55
*General Assessment Last Done: 11/08/24 16:13
*Neglect/Abuse Screening Last Done: 11/08/24 11:55
*ED COVID-19 Vaccine History Last Done: 11/08/24 11:55
*Nursing Disposition Last Done: 11/08/24 17:32
ED- Cardiac Assessment Last Done: 11/08/24 12:09
Discharge Date and Time
Discharge Date/Time: 11/08/24 17:32
--- NOTE | 2024-11-08 14:31 | HPS.HSE ---
Addendum entered and electronically signed by Jeb Spencer MD 11/08/24 15:13:
I saw and examined the patient.
The JANITOR AND CLEANER's note was reviewed and I agree with the note.
64-year-old woman with history of coronary artery bypass grafting 2019, PCi ( last procedur 2022) hypertension, dyslipidemia, diabetes, Left CEA, breast cancer status post bilateral breast surgeries who presents with shortness of breath and some
intermittent arm pains that remind her of her prior angina. Patient states she was in her usual state of health until yesterday she walked across her yard and driveway to go back to her house and felt like she was short of breath despite doing what
seemed to be usual walking also felt short of breath after going up a flight of stairs no associated chest discomfort or arm discomfort with this activity. She did have some left arm pains yesterday which initially she thought were musculoskeletal
related to using kettle bells but then she had some of her more sharp pains in her arm which reminded her prior angina she also had some associated nausea. No associated chest discomfort. In the past she had had chest discomfort that felt like
heartburn and sharp arm pains as part of her angina. Currently pain-free and not short of breath at rest no orthopnea lower extremity edema. No cough or fever. First troponin unremarkable ECG shows sinus rhythm with anterior T wave changes. When
compared with many of her prior ECGs patient's had varying degrees of anterior T wave changes and her current ECG is similar to previous ones. Exact cause of patient's symptoms is unclear. Although by description some of her symptoms are atypical
for angina patient states that her symptoms have similarity to angina she has had in the past. Of note the last time she presented with similar symptoms she had a Lexiscan nuclear perfusion stress test with a partially reversible defect suggesting
areas of infarct along with some sasha-infarct, inferolateral ischemia. She ultimately underwent cardiac catheterization which showed patent grafts. Medical therapy was continued. No coronary intervention was required.
-Admit for observation
-Follow serial troponins
-Echocardiogram
-Based on clinical course and pattern of troponins we will determine whether to proceed with invasive or noninvasive testing in a.m. Will also confer with her primary fuselage framer
Original Note:
Family Physician
-
Family Physician: NAFISA Crespo
Outpatient fuselage framer: Chel Moya MD
Chief Complaint
-
Shortness of breath
History of Present Illness
Sharla Eugene is a 64-year-old female (known to Dr. Moya, her primary fuselage framer), with CAD (PCI most recently 2022 and CABG 2018) left endarterectomy, breast cancer (bilateral mastectomy, 2009), bilateral upper extremity lymphedema,
hypertension, type 2 diabetes mellitus, and dyslipidemia with statin intolerance who presented to the ER with a chief complaint of shortness of breath. Ms. Eugene has a significant history of coronary artery disease. Her anginal equivalent is
shortness of breath, fatigue, and left arm discomfort. She is having all of the symptoms. Up until yesterday she has been feeling 'great'. She has been active in the gym and feeling well doing so. Yesterday, she felt very winded after a short
walk around her property. She does this frequently and normally feels fine. She felt like her stomach was unsettled and she was getting twinges of nausea. No emesis. She did not want to eat yesterday. She also endorsed significant fatigue for
the past 24 hours. She has been having left arm discomfort. She was attributing this to [employer] workouts. She had a few 'zaps' in her arm which she also had prior to her ME. At the time of this exam, she had no chest pain, no shortness of
breath at rest, and was free from arm discomfort.
Medical History
Past Medical History
Past Medical History: Reports Arrhythmia (Bigeminy, trigeminy), CAD, GERD, HTN, Hypercholesterolemia, NIDDM, ME, Psychiatric (Depression, mood disorder) and Other (Frequent UTIs [on suppressive antibiotics])
Past Surgical History: Reports Cardiac and Other (Bilateral mastectomy, left CEA)
Social History
Tobacco: Former Smoker
Alcohol: None
Drug: None
Personal:
Living: With Family
Family History
Family History: Not pertinent
Allergies / Home Medications
Allergies reflects when Allergies were last updated in [employer].
Home Medications with original date entered in [employer]
Allergy/Medication List:
Allergies:
Metformin caused weakness and shortness of breath
Penicillin caused vasovagal reaction
Pravastatin caused suicidal ideation
Rosuvastatin, suicidal ideation
FLORIAN inhibitors cause cough
Adhesive causes you to carry and redness
Dexamethasone causes manic behavior
Meperidine cause nausea and vomiting
Mesalamine caused poor coordination
Morphine causes nausea
Paroxetine caused manic behavior
Quinolones caused tardive dyskinesia
[employer]ANCE OFFICER stimulants cause lucia
Home medication list:
Aspirin 81 mg daily
Bactrim 800-160 mg tablet thrice weekly
buPROPion HCl 75 mg daily
Bupropion 55.5 milligrams at bedtime
Clonazepam 0.5 mg twice daily as needed anxiety
HCTZ 25 mg daily
Lamictal 75 mg daily
Metoprolol succinate 75 mg daily
Multivitamin 1 tablet Thursday
Nitrofurantoin 25 mg daily
Clopidogrel 75 mg daily
Pantoprazole 40 mg every afternoon
Tegretol 600 mg daily
Valsartan 320 mg daily
Vascepa 2 g twice daily
Zetia 10 mg daily
Review of Systems
-
A 12 point ROS was completed and negative except as noted: Yes
EENT: Reports No Symptoms
Respiratory: Reports See HPI
Cardiac: Reports See HPI
Abdomen/GI: Reports See HPI
: Reports No Symptoms
Musculoskeletal: Reports No Symptoms
Skin: Reports No Symptoms
Neurological: Reports No Symptoms
Endocrine: Reports No Symptoms
Hematologic/Lymphatic: Reports No Symptoms
Psych: Reports Calm
Physical Exam
Vital Signs
Vital Signs
Temp Pulse Resp BP Pulse Ox
97.8 F 60 11 109/66 98
11/08/24 11:55 11/08/24 13:45 11/08/24 13:45 11/08/24 13:00 11/08/24 13:45
Physical Exam
General: Well Developed, Well Nourished, No Apparent Distress and Comfortable
HEENT: NormoCephalic, Anicteric and Moist mucous membranes
Respiratory: Clear and Non Labored Respirations
Cardiac: S1/S2 and Regular Rhythm; No Peripheral Edema
Breast: Deferred by me
GI: Soft, Non Tender, Non Distended and Normal Bowel Sounds
Rectal: Deferred by Provider
Genito-urinary: No costovertebral tender
Musculoskeletal: No Clubbing, No Cyanosis and No Edema
Skin: Warm and Dry
Neuro: AO x 3
Hematologic/Lymphatic: No Lymphadenopathy
Psych: Calm
Laboratory Results
-
11/08/24 12:12
11/08/24 12:12
Laboratory Results
PT 13.8 Sec (11.4-14.6) 11/08/24 12:12
INR 1.03 11/08/24 12:12
Total Bilirubin 0.7 mg/dl (0.2-1.3) 11/08/24 12:12
AST 28 U/L (14-36) 11/08/24 12:12
ALT 28 U/L (0-35) 11/08/24 12:12
Alkaline Phosphatase 102 U/L (38-126) 11/08/24 12:12
Troponin I < 0.012 ng/ml 11/08/24 12:12
Data Reviewed
-
Diagnostic Radiology: Report Reviewed by me
Medical Tests (Nuc Med, Echo, EKG etc): Report Reviewed by me (Echocardiogram a cardiac catheterization as above)
Lab Data: Labs Reviewed by me
Old Records: Reviewed
Impression/Plan
-
IMPRESSION/PLAN: 64F with CAD (PCI most recently 2022 and CABG 2018) left endarterectomy, breast cancer (bilateral mastectomy, 2009), bilateral upper extremity lymphedema, hypertension, type 2 diabetes mellitus, and dyslipidemia with statin
intolerance who presented to the ER with a chief complaint of shortness of breath.
Shortness of breath
-Arm twinges (anginal equivalent) with exertion
-Asymptomatic at rest
-Troponin <0.012
-Anterolateral T wave abnormality similar in appearance in 2022
-Exercise nuclear stress test in a.m.
CAD
-CABG 2019, DEAN to LAD atretic
-Most recent PCI 12/2022
-No SGLT2i with frequent UTIs
-LDL above goal at 98, statins caused suicidal ideation, continue Zetia
HTN, soft but stable, follow
Dyslipidemia
-Documented statin intolerance
-Declined PCSK9i in the outpatient setting, she is afraid of worsening her depression, SI in the past
Ventricular bigeminy, continue beta slade
Left carotid artery stenosis S/P L CEA
Type II DM, with hyperglycemia, controlled, most recent Hgba1c 7.0%
[2024-11-08 16:15] LABS: Troponin I < 0.012 ng/ml
--- NOTE | 2024-11-08 18:11 | PTCARENOTE ---
Admitted to room 1142-2. AOx3, pleasant, ambulates independently. Sinus luisana/NSR on telemetry, HR 50-60s. Denies chest pain and SOB at this time. Updated on plan of care. Encouraged to make needs known.
[2024-11-08] MEDS: TOPROL XL 75 MG PO (20:13)
[2024-11-08] MEDS: TEGRETOL 600 MG PO (21:59)
[2024-11-08] MEDS: MACRODANTIN 50 MG PO (21:59)
[2024-11-08] MEDS: ASPIR LOW (ENTERIC COATED) 81 MG PO (22:01)
[2024-11-08] MEDS: PROTONIX 40 MG PO (22:01)
[2024-11-08] MEDS: PLAVIX 75 MG PO (22:02)
[2024-11-09 03:37] VITALS: BP 113/57
[2024-11-09 07:11] LABS: Tegretol (Carbamazepine) 10.4 ug/ml (4-12)
[2024-11-09 07:13] LABS: Blood Urea Nitrogen 24 mg/dl (7-17); Calcium 9.4 mg/dl (8.4-10.2); Carbon Dioxide 26 mmol/L (22-30); Chloride 100 mmol/L (98-107); Estimated Creatinine Clearance 83 ml/min; Glucose 142 mg/dl (70-99); Potassium 3.5 mmol/L (3.5-5.1); Sodium 137 mmol/L (135-145); eGFR > 60.00
[2024-11-09 07:15] LABS: Troponin I < 0.012 ng/ml
[2024-11-09 07:40] VITALS: BP 105/58
[2024-11-09] MEDS: WELLBUTRIN REGULAR RELEASE 75 MG PO (08:48)
[2024-11-09] MEDS: DIOVAN 320 MG PO (08:48)
[2024-11-09] MEDS: LAMICTAL 75 MG PO (08:48)
[2024-11-09] MEDS: TOPROL XL 75 MG PO (08:48)
[2024-11-09] MEDS: ZETIA 10 MG PO (08:48)
[2024-11-09] MEDS: ORETIC 25 MG PO (08:48)
--- NOTE | 2024-11-09 08:53 | W.PN.CD ---
Today's Communication / Plan
-
ETT-MIBI this am
next steps pending result, hopeful for discharge later today
Impression / Plan
-
64F with CAD (PCI most recently 2022 and CABG 2018) left endarterectomy, breast cancer (bilateral mastectomy, 2009), bilateral upper extremity lymphedema, hypertension, type 2 diabetes mellitus, and dyslipidemia with statin intolerance who presented
to the ER with a chief complaint of shortness of breath/fatigue and arm pains. .
Shortness of breath and fatigue
-Arm twinges (anginal equivalent) with exertion
-Asymptomatic at rest
-Troponin <0.012 x2, echo normal
-Anterolateral T wave abnormality similar in appearance in 2022
--unfortunately Ana Luisa never has a typical presentation, but has significant CAD. She has good sense about her body and symptoms. Therefore, I have recommended ETT-MIBI. IF similar to prior would continue OMT.
CAD
-CABG 2019, DEAN to LAD atretic
-Most recent PCI 12/2022
-No SGLT2i with frequent UTIs
-LDL above goal at 98, statins caused suicidal ideation, continue Zetia
-considering PCSK9i/inclisiran as op
HTN, soft but stable, follow
Dyslipidemia
-Documented statin intolerance
-Declined PCSK9i in the outpatient setting, she is afraid of worsening her depression, SI in the past
Ventricular bigeminy, continue beta slade
Left carotid artery stenosis S/P L CEA
Type II DM, with hyperglycemia, controlled, most recent Hgba1c 7.0%
Subjective:
she is feeling better, no further symptoms
Physical Exam
Vital Signs/Labs
Vital Signs
Temp Pulse Resp BP Pulse Ox
97.7 F 52 17 105/58 96
11/09/24 07:40 11/09/24 07:40 11/09/24 07:40 11/09/24 07:40 11/09/24 07:40
11/08/24 11/09/24 11/10/24
06:59 06:59 06:59
Actual Weight 81.7 kg
11/08/24 12:12
11/09/24 06:44
PT 13.8 Sec (11.4-14.6) 11/08/24 12:12
INR 1.03 11/08/24 12:12
11/08/24
12:12
[id number] Pept 510
LAB Results
11/08/24 11/08/24 11/09/24
12:12 15:40 06:44
Troponin I < 0.012 < 0.012 < 0.012
Physical Exam
Constitutional: No acute distress
Cardiovascular: Rhythm & rate is regular, Pedal edema is absent, JVD pressure is normal, Systolic murmur absent and Diastolic murmur absent
Respiratory: Respiratory effort normal, Lungs clear to auscul., Wheeze Absent, Crackles Absent and Rhonchi Absent
Neuro/Psych: AO x 3
Data Reviewed
-
Date of Service: November 09, 2024
Echo: Report Reviewed by me (11/08/24 normal without valvulopathy )
[2024-11-09 13:01] VITALS: BP 150/70
--- NOTE | 2024-11-09 13:17 | W.DS.TRANS ---
DC Summary - [employer]
-
Discharge Instructions:
Discharge Diagnosis/Procedures CAD, hypertension, dyslipidemia, diabetes
Diet Low Fat,Low Cholesterol,2 Gram Sodium,Diabetic,
Carb Controlled
Activity As tolerated
Driving Restrictions As prior to admission
Bathing Restrictions OK to Shower
Instructions:
Stand-Alone Forms:
Changes to Home Medications: No
Discharge Medications:
DC Medications w/original date entered in [facility]
aspirin 81 mg tablet,delayed release 81 mg PO HS Blood clot prevention/tx 01/07/18
pantoprazole 40 mg tablet,delayed release 40 mg PO HS Gastrointestinal issue 01/07/18
carbamazepine 200 mg tablet 600 mg PO HS Neurological Condition 09/03/18
valsartan 320 mg tablet (Diovan) 320 mg PO DAILY Blood pressure 09/20/19
hydrochlorothiazide 25 mg tablet 25 mg PO DAILY 09/21/19
metoprolol succinate 25 mg tablet,extended release 24 hr 75 mg (3 x 25 mg) PO BID ##0 09/21/19
nitroglycerin 0.4 mg sublingual tablet 0.4 mg sublingual [id number] PRN Chest Pain #25 tabs 05/07/21
bupropion HCl 75 mg tablet 75 mg PO DAILY Mental Health/Anxiety 12/16/22
icosapent ethyl 1 gram capsule (Vascepa) 2 g PO BID Supplement 12/16/22
clonazepam 0.5 mg tablet (Klonopin) 0.25 mg PO DAILYPRN PRN anxiety 09/29/23
lamotrigine 25 mg tablet (Lamictal) 75 mg PO DAILY Mental Health/Anxiety 09/29/23
bupropion HCl 75 mg tablet 55.5 mg PO DAILY@1600 Mental Health/Anxiety 10/05/23
clopidogrel 75 mg tablet 75 mg PO HS #0 tabs 10/06/23
clonazepam 1 mg tablet 1 mg PO HSPRN PRN insonia 11/08/24
dextran 70-hypromellose (PF) 0.1 %-0.3 % eye drops in a dropperette (Artificial Tears (PF)) 1 p BOTH EYES QIDPRN PRN dry eye 11/08/24
ezetimibe 10 mg tablet 10 mg PO DAILY 11/08/24
nitrofurantoin macrocrystal 50 mg capsule 50 mg PO HS 11/08/24
Home Medication Changes
Pending Results: No
--- NOTE | 2024-11-09 13:41 | CM ---
CM reviewed medical records. Plan for discharge to home today. No needs noted.
PLAN: home no needs.
[2024-11-09 14:56] VITALS: BP 105/56
== END 2024-11-09 16:40 | disposition home or self-care (01) ==
LOC: 1 ACUTE 15:27
PROVIDERS: Emergency Medicine; Nurse Practitioner Gerontology; ADMITTING PHYSICIAN Internal Medicine Cardiovascular Disease; EMERGENCY PHYSICIAN Emergency Medicine; FAMILY PHYSICIAN Nurse Practitioner Family
DX: I25.118 Atherosclerotic heart disease of native coronary artery with other forms of angina pectoris (principal); R07.9 Chest pain, unspecified; E78.00 Pure hypercholesterolemia, unspecified; I10 Essential (primary) hypertension; K21.9 Gastro-esophageal reflux disease without esophagitis; F32.A Depression, unspecified; E11.65 Type 2 diabetes mellitus with hyperglycemia; M79.602 Pain in left arm; R00.1 Bradycardia, unspecified; R00.8 Other abnormalities of heart beat; I25.2 Old myocardial infarction; Z87.891 Personal history of nicotine dependence; Z82.49 Family history of ischemic heart disease and other diseases of the circulatory system; Z79.02 Long term (current) use of antithrombotics/antiplatelets; Z79.82 Long term (current) use of aspirin; Z95.5 Presence of coronary angioplasty implant and graft; Z95.1 Presence of aortocoronary bypass graft; Z85.3 Personal history of malignant neoplasm of breast; Z90.13 Acquired absence of bilateral breasts and nipples; Z87.440 Personal history of urinary (tract) infections; Z79.2 Long term (current) use of antibiotics; Z88.1 Allergy status to other antibiotic agents; Z88.5 Allergy status to narcotic agent; Z88.0 Allergy status to penicillin; Z88.8 Allergy status to other drugs, medicaments and biological substances; Z91.048 Other nonmedicinal substance allergy status; Z79.899 Other long term (current) drug therapy
CPT/HCPCS: 71046; 78452; 80048; 80053; 80156; 83880; 84484; 85025; 85610; 93005; 93017; 93306; 99285; A9500; G0378

== ENCOUNTER → 2024-12-01 14:50 | Outpatient (REF) | payer MEDICARE, OTHER, SELFPAY | LOC: RAD 14:50 | PROVIDERS: ATTENDING PHYSICIAN Surgery Vascular Surgery | DX: I25.10 Atherosclerotic heart disease of native coronary artery without angina pectoris (principal); I65.29 Occlusion and stenosis of unspecified carotid artery | CPT/HCPCS: 93880 ==

== ENCOUNTER → 2025-03-15 15:00 | Outpatient (REF) | payer MEDICARE, OTHER, SELFPAY | LOC: CLAB 15:00 | PROVIDERS: ATTENDING PHYSICIAN Specialist | DX: N39.0 Urinary tract infection, site not specified (principal) | CPT/HCPCS: 87086 ==

== ENCOUNTER → 2025-03-16 14:53 | Outpatient (REF) | payer MEDICARE, OTHER, SELFPAY | LOC: HWRAD 14:53 | PROVIDERS: ATTENDING PHYSICIAN Nurse Practitioner Family | DX: M25.551 Pain in right hip (principal) | CPT/HCPCS: 73502 ==

== ENCOUNTER → 2025-06-02 13:33 | Outpatient (REF) | payer MEDICARE, OTHER, SELFPAY ==
[2025-06-02 16:35] LABS: Urine Character Mucous (Clear)
[2025-06-02 20:50] LABS: Urine Red Blood Cell 21-25 /HPF (0-2)
== END ==
LOC: HWLAB 13:33
PROVIDERS: ATTENDING PHYSICIAN Specialist; FAMILY PHYSICIAN Nurse Practitioner Family
DX: N39.0 Urinary tract infection, site not specified (principal)
CPT/HCPCS: 81003; 81015; 87077; 87086; 87186

== ENCOUNTER → 2025-06-19 13:30 | Outpatient (REF) | payer MEDICARE, OTHER, SELFPAY ==
[2025-06-19 15:46] LABS: Hematocrit 37.9 % (37.0-47.0); Hemoglobin 13.3 g/dL (12.0-16.0); Mean Corp Hgb Conc. 35.1 g/dL (33.0-37.0); Mean Corpuscular Volume 95.5 fL (81.0-99.0); Nucleated Red Blood Cells % 0 %; Platelet Count 279 10^3/uL (130-400); Red Cell Dist. Width 11.6 % (11.5-14.5)
[2025-06-19 15:57] LABS: Microalb - Urine Creatinine 203.000 mg/dl
[2025-06-19 16:06] LABS: ALT (SGPT) 30 U/L (0-35); AST (SGOT) 29 U/L (14-36); Albumin 4.6 g/dl (3.5-5.0); Alkaline Phosphatase 78 U/L (38-126); Blood Urea Nitrogen 22 mg/dl (7-17); Calcium 9.2 mg/dl (8.4-10.2); Carbon Dioxide 26 mmol/L (22-30); Chloride 105 mmol/L (98-107); Glucose 156 mg/dl (70-99); HDL Cholesterol 54 mg/dl; LDL Cholesterol, Calculated 100 mg/dl; Potassium 4.1 mmol/L (3.5-5.1); Sodium 140 mmol/L (135-145); Total Protein 7.2 g/dl (6.3-8.2); Very Low Density Lipoprotein 33 mg/dl (0-30); eGFR > 60.00
[2025-06-19 16:08] LABS: Microalbumin, Random Urine 1.6 mg/dl (0.6-1.7)
[2025-06-20 08:11] LABS: Glycohemoglobin (HgbA1c) 7.1 % (4.0-5.6)
== END ==
LOC: HWLAB 13:30
PROVIDERS: ATTENDING PHYSICIAN Physician Assistant; FAMILY PHYSICIAN Nurse Practitioner Family; REFERRING PHYSICIAN Specialist
DX: E11.65 Type 2 diabetes mellitus with hyperglycemia (principal); N39.0 Urinary tract infection, site not specified; Z51.81 Encounter for therapeutic drug level monitoring; I10 Essential (primary) hypertension; I25.118 Atherosclerotic heart disease of native coronary artery with other forms of angina pectoris; E11.9 Type 2 diabetes mellitus without complications; E78.5 Hyperlipidemia, unspecified; Z95.1 Presence of aortocoronary bypass graft; N20.0 Calculus of kidney; F33.40 Major depressive disorder, recurrent, in remission, unspecified; I65.29 Occlusion and stenosis of unspecified carotid artery; Z78.0 Asymptomatic menopausal state; Z12.11 Encounter for screening for malignant neoplasm of colon
CPT/HCPCS: 36415; 80053; 80061; 80156; 82043; 82570; 83036; 84156; 84443; 85025; 87086

== ENCOUNTER → 2025-06-23 13:58 | Outpatient (REF) | payer MEDICARE, OTHER, SELFPAY | LOC: RAD 13:58 | PROVIDERS: ATTENDING PHYSICIAN Surgery Vascular Surgery; FAMILY PHYSICIAN Nurse Practitioner Family | DX: I65.29 Occlusion and stenosis of unspecified carotid artery (principal); I25.10 Atherosclerotic heart disease of native coronary artery without angina pectoris | CPT/HCPCS: 93880 ==

== ENCOUNTER → 2025-06-26 13:47 | Outpatient (REF) | payer MEDICARE, OTHER, SELFPAY ==
[2025-06-26 16:20] LABS: Urine Character Cloudy (Clear)
[2025-06-26 16:42] LABS: Urine Squamous Cell >30 /LPF (Few)
== END ==
LOC: HWLAB 13:47
PROVIDERS: ATTENDING PHYSICIAN Specialist
DX: N39.0 Urinary tract infection, site not specified (principal)
CPT/HCPCS: 81003; 81015; 87077; 87086; 87186

== ENCOUNTER → 2025-07-14 12:09 | Outpatient (REF) | payer MEDICARE, OTHER, SELFPAY | LOC: HWLAB 12:09 | PROVIDERS: ATTENDING PHYSICIAN Specialist; FAMILY PHYSICIAN Nurse Practitioner Family | DX: N39.0 Urinary tract infection, site not specified (principal) | CPT/HCPCS: 87086 ==

== ENCOUNTER → 2025-07-18 12:32 | Outpatient (REF) | payer MEDICARE, OTHER, SELFPAY | LOC: HWLAB 12:32 | PROVIDERS: ATTENDING PHYSICIAN Specialist | DX: N39.0 Urinary tract infection, site not specified (principal) | CPT/HCPCS: 36415; 87077; 87086; 87186 ==

== ENCOUNTER → 2025-08-07 10:00 | Outpatient (REF) | payer MEDICARE, OTHER, SELFPAY | LOC: REG 10:00 | PROVIDERS: ATTENDING PHYSICIAN Specialist; FAMILY PHYSICIAN Nurse Practitioner Family | DX: N39.0 Urinary tract infection, site not specified (principal) | CPT/HCPCS: 87086 ==